=== PATIENT | male | born 1965 | race Caucasian/White ===

== ENCOUNTER 2021-11-25 15:21 | Emergency (ER) | payer OTHER, SELFPAY ==
[2021-11-25 15:35] VITALS: BP 99/60; PULSE 70; RESP 16; TEMP 36.7; O2SAT 100
--- NOTE | 2021-11-25 16:08 | ED.EAR ---
HPI - Ear Problem General Chief complaint: Ear Stated complaint: Pressure in Ear Time Seen by Provider: 11/25/21 16:10 Source: patient and RN notes reviewed Mode of arrival: ambulatory Limitations: no limitations History of Present Illness HPI Narrative: 56-year-old male presents to the [facility] with complaints of right ear pain, pressure, sore throat for 3 to 5 days. States he has tried calling his primary care doctor and cannot get in or they will not answer the phone. Denies fevers. Complains of severe pain to the right ear and sore throat. No treatment prior to arrival Related Data Home Medications Medication Instructions Recorded Confirmed cimetidine 200 mg tablet 200 mg PO ONCE 11/25/21 11/25/21 loratadine 10 mg tablet (Claritin) 10 mg PO DAILY 11/25/21 11/25/21 Allergies Allergy/AdvReac Type Severity Reaction Status Date / Time No Known Allergies Allergy Verified 11/25/21 16:18 Review of Systems Review of Systems: All systems reviewed & are unremarkable except as noted in HPI and below Constitutional: Constitutional: Reports no additional constitutional complaints, Denies chills and Denies fever(s) Eyes: Eyes: Reports no additional eye complaints ENT: Reports as per HPI (Right ear pain) and Reports sore throat Cardiovascular: Cardiovascular: Reports no additional cardiovascular complaints Respiratory: Respiratory: Reports no additional respiratory complaints Gastrointestinal: Gastrointestinal: Reports no additional gastrointestinal complaints Musculoskeletal: Musculoskeletal: Reports no additional musculoskeletal complaints Integumentary/Breasts: Skin/Breast: Reports system reviewed and no additional complaints, except as docu Neurologic: Reports system reviewed and no additional complaints, except as documented Psychiatric: Psychiatric: Reports no additional psychiatric complaints Allergic/Immunologic: Allergic/Immunologic: Reports no additional allergic/immunologic complaints [facility] Past Medical History Medical History (Updated 11/25/21 @ 20:01 by Monique Jasmine APRN) Patient denies medical problems Surgical History Surgical History (Updated 11/25/21 @ 20:01 by Monique Jasmine APRN) No history of previous surgery Social History Social History (Updated 11/25/21 @ 20:01 by Monique Jasmine APRN) Gender identity (if verbalized by the patient): Male Comments At the time of my signature, I reviewed and agree with the nursing past medical, surgical, social, and family history. There is no relevant family history pertinent to the patient complaint. Exam Const: General: no acute distress, alert and ill appearing acutely (mild) Nutritional Appearance: well nourished Orientation/consciousness: patient oriented x3 Limitations: no limitations HENMT: Head: normal to inspection Ears: external ears normal, EAC's normal and Abnormal EAC present erythema on the right General nose exam: Normal external nose present Throat: uvula midline, posterior oropharynx abnormal erythema and exudates and uvular edema Eyes: General: appearance normal, both eyes and all related structures Pupils: Equal, round and reactive pupils present Neck: Neck: normal visual inspection, no lymphadenopathy and no meningeal signs Chest: Chest palpation & inspection: normal inspection of the chest Resp: Effort & Inspection: normal respiratory effort and no use of accessory muscles Auscultation: clear to auscultation bilaterally, no crackles, no rales, no rhonchi and no wheezes Cardio: Rate: regular rate Rhythm: regular rhythm Back/Spine/Pelvis: Cervical Spine: normal cervical lordosis Thoracic/Lumbar Spine: thoracic and lumbar spine normal to inspection Skin: General skin exam: normal color Rashes: no rashes Wounds: no wounds Neuro: General: patient oriented x3, moves all extremities, no meningeal signs and no focal motor deficits Cranial nerves: Yes Equal, round and reactive pupils present Speech: norm
== END 2021-11-25 16:35 | disposition home or self-care (01) ==
PROVIDERS: Emergency Provider Nurse Practitioner
DX: K12.2 Cellulitis and abscess of mouth (principal); H66.001 Acute suppurative otitis media without spontaneous rupture of ear drum, right ear; K21.9 Gastro-esophageal reflux disease without esophagitis; M19.90 Unspecified osteoarthritis, unspecified site
CPT/HCPCS: 87081; 87880; 99203; G0463